=== PATIENT | female | born 1985 | race Caucasian/White ===

== ENCOUNTER 2016-11-30 09:43 | Day surgery (SDC) | payer BC ==
[2016-11-26 16:43] LABS: BASOPHILS 0.7 %; BASOPHILS ABSOLUTE 0.07 10/3/uL (0.0-0.16); EOSINOPHILS 5.1 %; EOSINOPHILS ABSOLUTE 0.48 10/3/uL (0.0-0.53); HEMOGLOBIN 12.8 g/dL (12.0-16.0); IMMATURE GRANULOCYTES 0.2 %; IMMATURE GRANULOCYTES ABSOLUTE 0.02 10/3/uL (0.0-0.11); LYMPHOCYTES 32.9 %; LYMPHOCYTES ABSOLUTE 3.08 10/3/uL (0.67-4.30); MEAN CORPUS HGB CONC 32.8 g/dL (32.0-36.0); MEAN CORPUSCULAR HEMOGLOB 30.1 pg (26.0-34.0); MEAN CORPUSCULAR VOLUME 91.8 fL (80-100); MEAN PLATELET VOLUME 9.9 fL (9.2-13.0); MONOCYTES 7.3 %; MONOCYTES ABSOLUTE 0.68 10/3/uL (0.21-1.20); NEUTROPHILS 53.8 %; NEUTROPHILS ABSOLUTE 5.03 10/3/uL (2.02-8.40); PLATELET COUNT 373 10/3/uL (150-400); RBC DISTRIBUTION WIDTH 13.1 % (12.0-16.0); RED CELL COUNT 4.25 10/6/uL (4.0-5.6); WHITE BLOOD CELLS 9.4 10/3/uL (4.5-10.5)
[2016-11-26 16:45] LABS: MANUAL DIFF NO %
[2016-11-26 16:55] LABS: A/G RATIO 1.2 (0.7-1.9); ALBUMIN 4.2 G/DL (3.5-5.0); ALKALINE PHOSPHATASE 81 U/L (45-117); CHLORIDE, SERUM 105 MMOL/L (96-112); CO2 (CARBON DIOXIDE) 27 MMOL/L (24-34); CREATININE 0.43 MG/DL (0.55-1.02); GFR AFRICAN AMERICAN 158 ML/MIN (>=60); GFR NON AFRICAN AMERICAN 136 ML/MIN (>=60); POTASSIUM, SERUM 4.2 MMOL/L (3.5-5.3); SGOT(AST) 11 U/L (5-40); SGPT(ALT) 32 U/L (5-65); SODIUM, SERUM 139 MMOL/L (135-148); TOTAL BILIRUBIN 0.3 MG/DL (0-1.2); TOTAL PROTEIN 7.7 G/DL (6.0-8.5)
[2016-11-26 16:56] LABS: BUN (BLOOD UREA NITROGEN) 15 MG/DL (6-23); GLOBULIN 3.5 G/DL (2.5-4.1); GLUCOSE, SERUM 93 MG/DL (60-99)
--- NOTE | ~2016-11-30 | OP ---
Record Of Operation [facility] [address] [place]. [address] NAME: SHANTANU EDWARDS : 85 STATUS : [facility]#: [id number] AGE: 30 ADM/REG DATE : 11/30/16 MR#: [id number] REPORT SERV DATE: 12/01/16 DICTATED BY: WILL PHILIPPE JR. DATE: 11/30/16 REPORT STATUS : Draft TRANSCRIBED BY: REGINE DATE: 11/30/16 DATE OF PROCEDURE: SURGEON: Will Philippe M.D. DERRICK BOAT CAPTAIN: Sandra Vick. PROCEDURE: Laparoscopic cholecystectomy. PREOPERATIVE DIAGNOSIS: Cholelithiasis. POSTOPERATIVE DIAGNOSIS: Cholelithiasis. ANESTHESIA: General. INDICATIONS: This patient has presented with right upper quadrant pain. Imaging shows cholelithiasis and cholecystectomy is indicated. FINDINGS: On laparoscopic exam of the abdomen, there is evidence of inflammation of the gallbladder. The gallbladder was removed successfully. No other significant findings were encountered. PROCEDURE: With adequate general anesthesia, the patient was placed in supine position. The abdomen was prepped and draped sterilely. 0.5% Marcaine was also used for local infiltration at all trocar sites. An infraumbilical incision was made. The dissection was carried down sharply through the subcutaneous tissues. The fascia and perineum were opened. The peritoneum cavity was entered. A balloon-tipped trocar was introduced and the abdomen was insufflated with CO2. The laparoscope was introduced with the above-noted findings. Under direct vision, a 10 mm trocar was placed in the epigastric region and two 5 mm in the subcostal. Gallbladder was identified, grasped, and retracted in a cephalad manner. The structures of the triangle of Calot were resected and the cystic duct and artery, these were doubly clipped and divided. Then, the gallbladder was removed from its bed with electrocautery. It was extracted through the umbilical site and submitted to Pathology for examination. Bleeding was controlled with electrocautery. The wounds were irrigated thoroughly with saline of any bleeding or bile leak. Then, all trocars were removed under direct vision. The umbilical site was closed at the fascial layer with [id number] PDS. All wounds were then closed with dermal Monocryl. Sterile dressings were applied. The patient tolerated the procedure well and left the operating room in satisfactory condition. BLOOD LOSS FOR THE PROCEDURE: 30 mL. OMAIRA/FRANCISCAL Record Of [place] [address] [place]. [address] NAME: SHANTANU EDWARDS : 85 STATUS : [facility] PAT#: [id number] AGE: 30 ADM/REG DATE : 11/30/16 MR#: [id number] REPORT SERV DATE: 12/01/16 DICTATED BY: WILL PHILIPPE JR. DATE: 11/30/16 REPORT STATUS : Draft TRANSCRIBED BY: REGINE DATE: 11/30/16 Will Philippe Jr., M.D. / [id number] CC: Nadja Ramirez Jr., M.D.
[~2016-11-30 09:43] MED LIST: PRILOSEC10 MG PO; PROBIOTIC
== END 2016-11-30 17:54 | disposition home or self-care (01) ==
LOC: SDC 09:43
PROVIDERS: Specialist
PROC: 0FT44ZZ Resection of Gallbladder, Percutaneous Endoscopic Approach (ICD-10-PCS; principal; 2016-11-30 11:30)
DX: K80.10 Calculus of gallbladder with chronic cholecystitis without obstruction (principal); Z87.891 Personal history of nicotine dependence; Z79.899 Other long term (current) drug therapy
CPT/HCPCS: 80053; 82150; 83690; 84703; 85025; 88304; A9270-GY; J0690; J1170; J1885; J2250; J2405; J3010